=== PATIENT | female | born 2000 | race Caucasian/White ===

== ENCOUNTER 2023-02-01 07:08 | Emergency (ER) | payer OTHER ==
[~2023-02-01] VITALS: Ht 162.6 cm; Wt 72.6 kg
[2023-02-01] MEDS ORDERED: FLONASE ALLERG9.9 ML NASAL (08:47)
[2023-02-01] MEDS ORDERED: MUCINEX DM ER1 EAC1 PO (08:47)
[2023-02-01] MEDS ORDERED: ZYRTEC10 M3 PO (08:47)
[2023-02-01] MEDS ORDERED: SINUS RINSE ST1 EACH NASAL (08:47)
== END 2023-02-01 09:02 | disposition home or self-care (01) ==
LOC: ER 07:08
DX: R09.02 Hypoxemia (principal)

== ENCOUNTER 2024-05-10 15:44 | Emergency (ER) | payer OTHER ==
[~2024-05-10] VITALS: Ht 162.6 cm; Wt 71.2 kg
[~2024-05-10 15:44] MED LIST: FLONASE ALLERG9.9 ML NASAL; MUCINEX DM ER1 EAC1 PO; SINUS RINSE ST1 EACH NASAL; ZYRTEC10 M3 PO
[2024-05-10] MEDS ORDERED: ORPHENADRINE CITRATE 30 MG/ML AMPUL ONE (18:11)
[2024-05-10] MEDS ORDERED: KETOROLAC TROMETHAMINE 60 MG VIAL IM ONE ×2 (18:12→18:15)
[2024-05-10] MEDS ORDERED: ORPHENADRINE CITRATE 30 MG/ML AMPUL IM ONE (18:15)
== END 2024-05-10 18:28 | disposition home or self-care (01) ==
LOC: ER 15:46
DX: M94.0 Chondrocostal junction syndrome [Tietze] (principal)

== ENCOUNTER → 2024-09-15 | Emergency (ER) | payer OTHER ==
[~2024-09-15] VITALS: Ht 162.6 cm; Wt 68.9 kg
[~2024-09-15] MED LIST changes: +KETOROLAC TROMETHAMINE 30 MG VIAL IM STA; +KETOROLAC TROMETHAMINE 30 MG VIAL ONE
[2024-09-15 20:23] LABS: HEMATOCRIT 43.5 % (36.0-45.00); HEMOGLOBIN 14.9 g/dL (12.0-15.00); MEAN CORPUSCULAR HEMOGLOBIN 30.5 pg (27.00-32.0); MEAN CORPUSCULAR HGB CONC 34.2 g/dl (32.0-36.0); PLATELET COUNT 360 K/uL (150-450); RED BLOOD COUNT 4.88 M/uL (4.00-6.00); RED CELL DISTRIBUTION WIDTH 12.9 % (11.5-14.5)
[2024-09-15 21:05] LABS: URINE APPEARANCE Clear; URINE BILIRRUBIN Negative (NEGATIVE); URINE BLOOD Negative; URINE COLOR Yellow; URINE GLUCOSE Negative (NEGATIVE); URINE KETONE Negative (NEGATIVE); URINE LEUKOCYTE Moderate; URINE NITRATE Negative; URINE PROTEIN Negative (NEGATIVE); URINE UROBILINOGEN 0.2 E.U./dl
[2024-09-15 21:08] LABS: URINE BACTERIA 578.8 uL (0.0-1933); URINE RBC 2.2 uL (0.0-20.8); URINE WBC 79.6 uL (0.0-23.2)
[2024-09-15 21:22] LABS: CALCIUM 9.6 mg/dL (8.5-10.1); CREATININE SERUM 0.81 mg/dL (0.55-1.02); GFR 86.15; POTASSIUM 4.2 mEq/L (3.5-5.1)
== END | disposition left against medical advice (07) ==
LOC: ER 18:39
PROVIDERS: General Practice
DX: R10.9 Unspecified abdominal pain (principal)

== ENCOUNTER 2024-10-31 04:52 | Emergency (ER) | payer OTHER ==
[~2024-10-31] VITALS: Ht 165.1 cm; Wt 65.8 kg
[~2024-10-31 04:52] MED LIST changes: -KETOROLAC TROMETHAMINE 30 MG VIAL IM STA; -KETOROLAC TROMETHAMINE 30 MG VIAL ONE
[2024-10-31] MEDS ORDERED: 0.9 % SODIUM CHLORIDE 1,000 ML IV STA (05:53)
[2024-10-31] MEDS ORDERED: FAMOtidine 10 MG/ML (4ML VIAL) IV PUSH STA (05:54)
[2024-10-31] MEDS ORDERED: ONDANSETRON HCL 2 MG/ML VIAL IV STA (05:54)
[2024-10-31 06:30] LABS: HEMATOCRIT 46.7 % (36.0-45.00); HEMOGLOBIN 16.3 g/dL (12.0-15.00); MEAN CELL VOLUME 87.6 fL (80.00-100.00); MEAN CORPUSCULAR HEMOGLOBIN 30.6 pg (27.00-32.0); PLATELET COUNT 317 K/uL (150-450); RED BLOOD COUNT 5.33 M/uL (4.00-6.00); RED CELL DISTRIBUTION WIDTH 12.5 % (11.5-14.5)
[2024-10-31 06:53] LABS: CALCIUM 9.4 mg/dL (8.5-10.1); CREATININE SERUM 0.89 mg/dL (0.55-1.02); GFR 77.28; POTASSIUM 4.15 mEq/L (3.5-5.1)
== END 2024-10-31 09:36 | disposition home or self-care (01) ==
LOC: ER 04:54
DX: K52.9 Noninfective gastroenteritis and colitis, unspecified (principal); R10.9 Unspecified abdominal pain

== ENCOUNTER 2025-04-17 10:35 | Emergency (ER) | payer OTHER ==
[~2025-04-17] VITALS: Ht 162.6 cm; Wt 70.3 kg
[2025-04-17] MEDS ORDERED: BUTALB/ACETAMINOPHEN/CAFFEINE 1 TAB TABLET PO ONE ×2 (12:45→13:05)
[2025-04-17] MEDS ORDERED: CEFTRIAXONE SODIUM 2,000 MG VIAL IV ONE (12:45)
[2025-04-17] MEDS ORDERED: CEFTRIAXONE SODIUM 2,000 MG VIAL ONE (12:59)
== END 2025-04-17 15:11 | disposition home or self-care (01) ==
LOC: ER 10:35
DX: K04.7 Periapical abscess without sinus (principal)